=== PATIENT | male | born 1945 | race Caucasian/White ===

== ENCOUNTER 2016-12-01 01:01 | Inpatient (IN) | payer OTHER ==
[~2016-12-01] VITALS: Ht 188 cm; Wt 78.0 kg
[~2016-12-01 01:01] MED LIST: AMLO2.5T PO; ASA3 PO; BUSP15 PO; CALC-7 PO; DULO30CA2 PO; ESOM40CA PO; HYDR25TA PO; LISI-660 PO; MIRT15 PO; PANT40TA25 PO; PHEN100C23 PO; POTA8TAB4 PO; PROM25 PO; SENN-30 PO; SIMV-260 PO; THIO50 PO
[2016-12-01] MEDS ORDERED: LACT30L PO (01:13)
[2016-12-01] MEDS ORDERED: METO5TAB95 PO (01:15)
[2016-12-01] MEDS ORDERED: CEPH500 PO (01:16)
[2016-12-01] MEDS ORDERED: OMEP20 PO (01:19)
[2016-12-01] MEDS ORDERED: FLUT110HFA IH (01:20)
[2016-12-01] MEDS ORDERED: IPRA3AMP4 NEB (01:20)
[2016-12-01 01:26] LABS: GLUCOSE,POINT OF CARE 117 MG/DL (70-110)
[2016-12-01 01:55] LABS: BASOPHILS # (AUTO) 0.02 K/uL (0.00-0.20); BASOPHILS % (AUTO) 0.2 % (0.0-2.0); EOSINOPHILS # (AUTO) 0.23 K/uL (0.00-0.70); EOSINOPHILS % (AUTO) 1.81 % (1.0-6.0); HEMATOCRIT 43.6 % (41-53); LYMPHOCYTES # (AUTO) 1.4 K/uL (1.0-4.8); LYMPHOCYTES % (AUTO) 11.2 % (22.0-44.0); MEAN CORPUSCULAR HEMOGLOBIN 28.4 pg (26.0-34.0); MEAN CORPUSCULAR VOLUME 89 fL (80-100); MONOCYTES # (AUTO) 0.8 K/uL (0.1-1.0); MONOCYTES % (AUTO) 6.5 % (2.0-9.0); NEUTROPHILS # (AUTO) 10.2 K/uL (1.8-7.7); NEUTROPHILS % (AUTO) 80.3 % (40.0-70.0); PLATELET COUNT (AUTO) 379 K/uL (150-450); RED BLOOD CELL COUNT(AUTO) 4.92 MIL/uL (4.50-5.90); RED CELL DISTRIBUTION WIDTH 15.9 % (11.5-14.5); WHITE BLOOD COUNT (AUTO) 12.7 K/uL (4.5-11.0)
[2016-12-01 02:03] LABS: ANION GAP 4 mmol/L (8-16); CALCIUM, TOTAL 8.5 mg/dL (8.8-10.5); CARBON DIOXIDE 35 mmol/L (22-29); CHLORIDE 101 mmol/L (98-107); CREATININE 0.69 mg/dL (0.60-1.30); GLOMERULAR FILTR. RATE CALC > 60 mL/min (>60); POTASSIUM 3.9 mmol/L (3.5-5.1); SODIUM SERUM 140 mmol/L (136-145); UREA NITROGEN, BLOOD 18 mg/dL (7-18)
[2016-12-01 02:10] LABS: ALANINE AMINOTRANSFERASE 27 U/L (12-78); ALBUMIN 2.8 g/dL (3.4-5.0); ASPARTATE AMINOTRANSFERASE 18 U/L (15-37); BILIRUBIN,TOTAL 0.3 mg/dL (0.1-1.0); CREATINE KINASE, TOTAL 55 U/L (39-308); TOTAL PROTEIN, SERUM 6.2 g/dL (6.4-8.2)
[2016-12-01 02:16] LABS: B-TYPE NATRIURETIC PEPTIDE 53 pg/mL (0-100)
[2016-12-01 05:13] VITALS: BP 124/70
[2016-12-01 07:50] VITALS: BP 147/87
[2016-12-01 10:55] VITALS: BP 158/97
[2016-12-01 12:24] LABS: APPEARANCE,URINE TURBID (CLEAR); GLUCOSE, URINE (UA) NEGATIVE (NEGATIVE); KETONES,URINE NEGATIVE (NEGATIVE); LEUKOCYTE ESTERASE ,URINE TRACE (NEGATIVE); OCCULT BLOOD,URINE NEGATIVE (NEGATIVE); PROTEIN,URINE NEGATIVE (NEGATIVE)
[2016-12-01 12:29] LABS: ADD UA MICROSCOPIC YES
[2016-12-01 12:31] LABS: RBC,URINE None Seen /HPF (0-2); SQUAMOUS EPITHELIAL CELL,UR Rare /LPF (None Seen); WBC,URINE 0-2 /HPF (0-5)
[2016-12-01] MEDS ORDERED: ALBUTEROL SULFATE 2.5 MG/0.5 ML NEB SOLUTION NEB PRN (14:00)
[2016-12-01] MEDS ORDERED: MAGNESIUM HYDROXIDE SUSPENSION 30 ML UDCUP PO PRN (14:00)
[2016-12-01] MEDS ORDERED: ACETAMINOPHEN 325 MG TABLET PO PRN (14:00)
[2016-12-01 15:42] VITALS: BP 148/86
[2016-12-01] MEDS: PANTOPRAZOLE SODIUM 40 MG/VIAL IVP SCH (16:15)
[2016-12-01 17:33] LABS: BASOPHILS % (AUTO) 0.1 % (0.0-2.0); EOSINOPHILS % (AUTO) 1.5 % (1.0-6.0); HEMATOCRIT 38.7 % (41-53); HEMOGLOBIN 12.6 g/dL (13.5-17.5); LYMPHOCYTES # (AUTO) 1.2 K/uL (1.0-4.8); LYMPHOCYTES % (AUTO) 11.6 % (22.0-44.0); MEAN CORPUSCULAR HEMOGLOBIN 28.7 pg (26.0-34.0); MEAN CORPUSCULAR HGB CONC 32.6 G/dL (31.0-37.0); MEAN CORPUSCULAR VOLUME 88 fL (80-100); MONOCYTES # (AUTO) 0.8 K/uL (0.1-1.0); MONOCYTES % (AUTO) 7.5 % (2.0-9.0); NEUTROPHILS # (AUTO) 8.1 K/uL (1.8-7.7); NEUTROPHILS % (AUTO) 79.3 % (40.0-70.0); PLATELET COUNT (AUTO) 355 K/uL (150-450); RED BLOOD CELL COUNT(AUTO) 4.39 MIL/uL (4.50-5.90); RED CELL DISTRIBUTION WIDTH 15.5 % (11.5-14.5); WHITE BLOOD COUNT (AUTO) 10.2 K/uL (4.5-11.0)
[2016-12-01 17:37] LABS: ABG A-A DIFF O2 52.8 mmHg (10-20.0); ABG BASE EXCESS 9.8 mmol/L (-2.0-3.0); ABG HCO3 32.4 mmol/L (22.0-26.0); ABG OXYHEMOGLOBIN 95.3 % (94.0-100.0); ABG PCO2 47 mmHg (35-45); ABG PH 7.469 (7.35-7.450)
[2016-12-01 17:38] LABS: ALLEN TEST, BLOOD GAS Positive
[2016-12-01 17:46] LABS: INR 1.1 (0.9-1.1); PROTHROMBIN TIME 11.4 SEC (9.4-11.6)
[2016-12-01] MEDS ORDERED: DEXTROSE 5%-0.45% SODIUM CHL 1,000 ML IV ONE (18:15)
[2016-12-01 20:10] VITALS: BP 134/80
[2016-12-01] MEDS: DOCUSATE SODIUM 100 MG CAPSULE PO SCH (20:42)
[2016-12-01 23:52] VITALS: BP 145/80
[2016-12-02 04:24] VITALS: BP 138/70
[2016-12-02 07:17] LABS: ANION GAP 5 mmol/L (8-16); CALCIUM, TOTAL 8.1 mg/dL (8.8-10.5); CARBON DIOXIDE 31 mmol/L (22-29); CHLORIDE 101 mmol/L (98-107); CREATININE 0.74 mg/dL (0.60-1.30); GLOMERULAR FILTR. RATE CALC > 60 mL/min (>60); POTASSIUM 3.2 mmol/L (3.5-5.1); SODIUM SERUM 137 mmol/L (136-145); UREA NITROGEN, BLOOD 24 mg/dL (7-18)
[2016-12-02 07:38] VITALS: BP 118/64
[2016-12-02] MEDS: DOCUSATE SODIUM 100 MG CAPSULE PO SCH ×2 (09:00→20:11)
[2016-12-02] MEDS: PANTOPRAZOLE SODIUM 40 MG/VIAL IVP SCH ×2 (09:06→20:08)
[2016-12-02 11:03] VITALS: BP 137/64
[2016-12-02] MEDS ORDERED: POTASSIUM CHLORIDE 10% 40 MEQ/30 ML LIQUID UDCUP PEG PRN (13:00)
[2016-12-02] MEDS: SODIUM CHLORIDE 0.9% 1,000 ML IV SCH (14:02)
[2016-12-02] MEDS: POTASSIUM CHL 10 MEQ/WATER 50 ML IV PRN ×3 (14:06→16:41)
[2016-12-02] MEDS: METOCLOPRAMIDE HCL 5 MG/ML 2 ML VIAL IVP SCH ×2 (15:23→23:53)
[2016-12-02] MEDS ORDERED: METOCLOPRAMIDE HCL 5 MG TABLET PO SCH (16:00)
[2016-12-02 16:03] VITALS: BP 149/83
[2016-12-02] MEDS: CefTRIAXone 1 GM/DEXTROSE 50 ML IV SCH (17:44)
[2016-12-02 20:23] VITALS: BP 127/69
[2016-12-02 23:27] VITALS: BP 155/104
[2016-12-03] VITALS (7 sets, daily range): BP systolic 125–160; BP diastolic 67–94
[2016-12-03] MEDS: METOCLOPRAMIDE HCL 5 MG/ML 2 ML VIAL IVP SCH ×2 (08:58→15:16)
[2016-12-03] MEDS: PANTOPRAZOLE SODIUM 40 MG/VIAL IVP SCH ×2 (08:58→21:02)
[2016-12-03] MEDS: LISINOPRIL 5 MG TABLET PO SCH (08:59)
[2016-12-03] MEDS: SODIUM CHLORIDE 0.9% 1,000 ML IV SCH (08:59)
[2016-12-03] MEDS: DOCUSATE SODIUM 100 MG CAPSULE PO SCH ×2 (08:59→21:00)
[2016-12-03] MEDS ORDERED: SODIUM CHLORIDE 0.9% 1,000 ML IV ONE (12:13)
[2016-12-03] MEDS: CefTRIAXone 1 GM/DEXTROSE 50 ML IV SCH (15:16)
[2016-12-04] MEDS: METOCLOPRAMIDE HCL 5 MG/ML 2 ML VIAL IVP SCH ×4 (00:21→23:34)
[2016-12-04 05:23] VITALS: BP 141/63
[2016-12-04 07:35] VITALS: BP 147/82
[2016-12-04] MEDS: LISINOPRIL 5 MG TABLET PO SCH (08:23)
[2016-12-04] MEDS: DOCUSATE SODIUM 100 MG CAPSULE PO SCH ×2 (08:23→21:09)
[2016-12-04] MEDS: SODIUM CHLORIDE 0.9% 1,000 ML IV SCH (08:31)
[2016-12-04] MEDS: PANTOPRAZOLE SODIUM 40 MG/VIAL IVP SCH ×2 (08:38→21:09)
[2016-12-04 11:26] VITALS: BP 160/74
[2016-12-04] MEDS: CefTRIAXone 1 GM/DEXTROSE 50 ML IV SCH (15:43)
[2016-12-04 16:01] VITALS: BP 146/79
[2016-12-04 19:32] VITALS: BP 133/71
[2016-12-05 00:35] VITALS: BP 109/55
[2016-12-05] MEDS: SODIUM CHLORIDE 0.9% 1,000 ML IV SCH (04:29)
[2016-12-05 04:56] VITALS: BP 145/72
[2016-12-05 07:44] VITALS: BP 157/80
[2016-12-05] MEDS: METOCLOPRAMIDE HCL 5 MG/ML 2 ML VIAL IVP SCH ×2 (08:26→16:33)
[2016-12-05] MEDS: PANTOPRAZOLE SODIUM 40 MG/VIAL IVP SCH (08:27)
[2016-12-05] MEDS: LISINOPRIL 5 MG TABLET PO SCH (08:51)
[2016-12-05] MEDS: DOCUSATE SODIUM 100 MG CAPSULE PO SCH (08:51)
[2016-12-05] MEDS ORDERED: SODIUM CHLORIDE 0.9% 1,000 ML IV ONE ×2 (10:50→11:15)
[2016-12-05 11:19] VITALS: BP 150/73
[2016-12-05 15:38] VITALS: BP 139/79
[2016-12-05] MEDS: CefTRIAXone 1 GM/DEXTROSE 50 ML IV SCH (16:33)
[2016-12-05] MEDS ORDERED: LIDOCAINE HCL/PF 2% 5 ML VIAL INJ ONE (18:32)
[2016-12-05] MEDS ORDERED: PROPOFOL 1% 20 ML VIAL IVP ONE (18:32)
[2016-12-06] MEDS ORDERED: POVIDONE-IODINE 10% 120 ML SOLUTION TP SCH (09:00)
[2016-12-06] MEDS ORDERED: HYDROGEN PEROXIDE 473 ML SOLUTION TP SCH (09:00)
== END 2016-12-05 18:33 | DRG 393 ==
LOC: EMS 01:04 → 5S 03:30
PROVIDERS: ADMIT Internal Medicine; ATTEND Internal Medicine
PROC: 0DB38ZX Excision of Lower Esophagus, Via Natural or Artificial Opening Endoscopic, Diagnostic (ICD-10-PCS; 2016-12-05)
PROC: 0D20XUZ Change Feeding Device in Upper Intestinal Tract, External Approach (ICD-10-PCS; principal; 2016-12-05 12:30)
DX: K94.23 Gastrostomy malfunction (principal); J96.01 Acute respiratory failure with hypoxia; E43 Unspecified severe protein-calorie malnutrition; K92.0 Hematemesis; I48.91 Unspecified atrial fibrillation; F03.90 Unspecified dementia, unspecified severity, without behavioral disturbance, psychotic disturbance, mood disturbance, and anxiety; R13.10 Dysphagia, unspecified; E78.00 Pure hypercholesterolemia, unspecified; E78.5 Hyperlipidemia, unspecified; F32.9 Major depressive disorder, single episode, unspecified; K22.8 Other specified diseases of esophagus; K21.0 Gastro-esophageal reflux disease with esophagitis; I10 Essential (primary) hypertension; R62.7 Adult failure to thrive; Z79.899 Other long term (current) drug therapy; Z86.73 Personal history of transient ischemic attack (TIA), and cerebral infarction without residual deficits; Z90.49 Acquired absence of other specified parts of digestive tract; Z87.01 Personal history of pneumonia (recurrent); Z74.01 Bed confinement status; Z87.891 Personal history of nicotine dependence; Z68.22 Body mass index [BMI] 22.0-22.9, adult; I25.2 Old myocardial infarction
CPT/HCPCS: 71260; 74000; 82271; 82805; 82962; 84132; 87081; 87086; 88305; 88312; 88342; 93005; 99285; C9113; J0696; J2704; J2765; J3480; J3490; J7030

== ENCOUNTER 2017-02-03 07:59 | Emergency (ER) | payer OTHER ==
[~2017-02-03] VITALS: Ht 182.9 cm; Wt 79.5 kg
[~2017-02-03 07:59] MED LIST changes: -AMLO2.5T PO; -ASA3 PO; -BUSP15 PO; -CALC-7 PO; +CEPH500 PO; -DULO30CA2 PO; -ESOM40CA PO; +FLUT110HFA IH; -HYDR25TA PO; +IPRA3AMP4 NEB; +LACT30L PO; +METO5TAB95 PO; -MIRT15 PO; +OMEP20 PO; -PANT40TA25 PO; -PHEN100C23 PO; -POTA8TAB4 PO; -PROM25 PO; -SENN-30 PO; -SIMV-260 PO; -THIO50 PO
[2017-02-03] MEDS ORDERED: ACET-2247 PO (08:21)
[2017-02-03] MEDS ORDERED: VITAD400 PO (08:21)
[2017-02-03] MEDS ORDERED: BISA10S PR (08:21)
[2017-02-03] MEDS ORDERED: LEVE500T53 PO (08:21)
[2017-02-03] MEDS ORDERED: ONDA4 PO (08:21)
[2017-02-03] MEDS ORDERED: METOCLOPRAMIDE HCL 5 MG/ML 2 ML VIAL IVP ONE (08:30)
[2017-02-03 08:58] LABS: BASOPHILS % (AUTO) 0.5 % (0.0-2.0); EOSINOPHILS % (AUTO) 2.1 % (1.0-6.0); HEMATOCRIT 48.1 % (41-53); HEMOGLOBIN 15.1 g/dL (13.5-17.5); LYMPHOCYTES # (AUTO) 1.2 K/uL (1.0-4.8); LYMPHOCYTES % (AUTO) 12.4 % (22.0-44.0); MEAN CORPUSCULAR HEMOGLOBIN 27.2 pg (26.0-34.0); MEAN CORPUSCULAR HGB CONC 31.3 G/dL (31.0-37.0); MEAN CORPUSCULAR VOLUME 87 fL (80-100); MONOCYTES # (AUTO) 0.6 K/uL (0.1-1.0); MONOCYTES % (AUTO) 6.4 % (2.0-9.0); NEUTROPHILS # (AUTO) 7.9 K/uL (1.8-7.7); NEUTROPHILS % (AUTO) 78.6 % (40.0-70.0); PLATELET COUNT (AUTO) 366 K/uL (150-450); RED BLOOD CELL COUNT(AUTO) 5.54 MIL/uL (4.50-5.90); WHITE BLOOD COUNT (AUTO) 10.1 K/uL (4.5-11.0)
[2017-02-03 09:07] LABS: ANION GAP 5 mmol/L (8-16); CALCIUM, TOTAL 8.9 mg/dL (8.8-10.5); CARBON DIOXIDE 33 mmol/L (22-29); CHLORIDE 104 mmol/L (98-107); CREATININE 0.72 mg/dL (0.60-1.30); GLOMERULAR FILTR. RATE CALC > 60 mL/min (>60); POTASSIUM 3.5 mmol/L (3.5-5.1); SODIUM SERUM 142 mmol/L (136-145); UREA NITROGEN, BLOOD 22 mg/dL (7-18)
[2017-02-03 09:13] LABS: ALANINE AMINOTRANSFERASE 51 U/L (12-78); ALBUMIN 3.3 g/dL (3.4-5.0); ASPARTATE AMINOTRANSFERASE 43 U/L (15-37); BILIRUBIN,TOTAL 0.4 mg/dL (0.1-1.0); TOTAL PROTEIN, SERUM 7.4 g/dL (6.4-8.2)
[2017-02-03 09:16] LABS: PROTHROMBIN TIME 10.5 SEC (9.4-11.6)
[2017-02-03 10:15] VITALS: BP 148/78
== END 2017-02-03 11:06 | disposition home or self-care (01) ==
LOC: EMS 08:00
DX: R11.10 Vomiting, unspecified (principal); K21.9 Gastro-esophageal reflux disease without esophagitis; E78.00 Pure hypercholesterolemia, unspecified; F03.90 Unspecified dementia, unspecified severity, without behavioral disturbance, psychotic disturbance, mood disturbance, and anxiety; I10 Essential (primary) hypertension; I25.2 Old myocardial infarction; Z93.1 Gastrostomy status
CPT/HCPCS: 36415; 80053; 85025; 85610; 96374; 99284; J2765